=== PATIENT | female | born 1980 | race Caucasian/White ===

== ENCOUNTER 2024-07-10 21:53 | Emergency (ER) | payer SELFPAY ==
[2024-07-10 21:55] VITALS: BP 120/79; PULSE 105; RESP 18; TEMP 36.7; O2SAT 100; BMI 36.6
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
[2024-07-10 22:15] VITALS: O2SAT 100
[2024-07-10 22:28] VITALS: O2SAT 100
[2024-07-10] MEDS: MethylPREDNISolone 125 MG/2 ML Vial IV (22:30)
[2024-07-10 22:31] VITALS: PULSE 116; RESP 20
[2024-07-10] MEDS: Ipratropium/Albuterol Sulfate 3 ML AMPUL.NEB INHALATION (22:31)
[2024-07-10 22:42] LABS: Absolute Lymphocyte Count 1.49 X10^3/uL (0.83-4.51); Absolute Neutrophil Count 5.7 X10^3/uL (2.0-7.7); Basophil# 0.03 X10^3/uL; Basophil% 0.4 % (0-1); Eosinophils% 1.3 % (0-5); Hematocrit 38.6 % (37-47); Hemoglobin 13.8 g/dL (12.0-15.0); Lymphocyte # 1.49 X10^3/ul (0.83-4.51); Lymphocyte % 19.1 % (19-41); Mean Corp Hgb Conc 35.8 g/dL (32-36); Mean Corpuscular Hgb 31.2 pg (27.0-32.0); Mean Corpuscular Volume 87.3 fL (81-99); Mean Platelet Vol. 9.6 fl (6.2-12.0); Monocyte# 0.45 X10^3/uL; Monocyte% 5.8 % (0-10); NRBC Flagged by Analyzer 0 % (0-5); Neutrophil # 5.71 X10^3/uL (2.7-7.7); Platelet Count 223 K/mm3 (150-450); RBC Distribution Width CV 12.6 % (11.6-14.6); Red Blood Count 4.42 M/mm3 (4.2-5.4); White Blood Count 7.8 K/mm3 (4.4-11.0)
--- NOTE | 2024-07-10 22:52 | RAD_ITS ---
EXAM: XR CHEST, 2 VIEWS CLINICAL INDICATION: SOB, cough TECHNIQUE: Frontal and lateral views of the chest. COMPARISON: No relevant prior studies available. FINDINGS: LUNGS AND PLEURAL SPACES: Unremarkable. No consolidation or edema. No pneumothorax. No effusion. HEART: Unremarkable. Cardiac silhouette not enlarged. MEDIASTINUM: Central airways and mediastinal contour are unremarkable. BONES/JOINTS: Unremarkable. No acute fracture. SOFT TISSUES: Unremarkable. RAD/Chest PA and Lateral IMPRESSION: No radiographic evidence of acute cardiopulmonary disease. Electronically Signed: Rafael Frye MD at 23:24 EST ,
[2024-07-10 22:53] LABS: D-Dimer Quantitative (DVT/PE) 0.29 FEU/ug/m (0.27-0.49)
[2024-07-10 22:57] LABS: Anion Gap 7 (5-15); BUN 18 mg/dL (7-18); BUN/Creat Ratio 13.8 RATIO (10-20); Calcium,Total 9.5 mg/dL (8.5-10.1); Chloride 108 mmol/L (98-107); EST Glomerular Filtration Rate 47 mL/min (>60); Est Glom Filt Rate - Afr Amer 57 mL/min (>60); Estimated Creatinine Clearance 72.29 ml/min; Glucose 118 mg/dL (74-106); Potassium 3.6 mmol/L (3.5-5.1); Sodium Level 140 mmol/L (136-145); Troponin-I HS (w/2H Reflex) 4 pg/mL (3.0-54.0)
[2024-07-10 23:01] LABS: BNP,B-Type NATRIURETIC PEPTIDE 11.5 pg/mL (0-100)
[2024-07-10 23:55] VITALS: BP 110/75; PULSE 97; RESP 18; O2SAT 98
[2024-07-11] MEDS: Ipratropium/Albuterol Sulfate 3 ML AMPUL.NEB INHALATION (00:25)
[2024-07-11 00:26] VITALS: PULSE 95; RESP 24
[2024-07-11 00:30] LABS: Reflex Troponin-HS? (from REC) Y
[2024-07-11] MEDS: Ketorolac 15 MG/ML Vial IV (00:33)
[2024-07-11 01:04] LABS: Troponin-I HS 4 pg/mL (3.0-54.0)
[2024-07-11 01:15] VITALS: BP 117/72; PULSE 106; RESP 24; TEMP 36.7; O2SAT 100
== END 2024-07-11 01:16 | disposition home or self-care (01) ==
PROVIDERS: Emergency Provider Emergency Medicine; Visit Provider Emergency Medicine
DX: R06.02 Shortness of breath (principal); J45.909 Unspecified asthma, uncomplicated; Z90.710 Acquired absence of both cervix and uterus; Z90.49 Acquired absence of other specified parts of digestive tract; Z90.81 Acquired absence of spleen
CPT/HCPCS: 71046; 80048; 83880; 84484; 85025; 85379; 87631; 93005; 94640; 96374; 96375; 99285; A4216